=== PATIENT | female | born 1980 | race African-American/Black ===

== ENCOUNTER 2020-11-05 08:29 | Emergency (ER) | payer MEDICAID, OTHER ==
[~2020-11-05] VITALS: Ht 172.7 cm; Wt 88.0 kg
[2020-11-05] MEDS ORDERED: SODIUM CHLORIDE 0.9% 1,000 ML IV ONE (10:00)
[2020-11-05] MEDS ORDERED: METOCLOPRAMIDE HCL 10MG/2ML VIAL IV ONE (10:00)
[2020-11-05] MEDS ORDERED: KETOROLAC 15MG/ML VIAL IV ONE (10:00)
[2020-11-05] MEDS ORDERED: IBUP-2028 MT (12:01)
[2020-11-05 12:10] VITALS: BP 112/78
== END 2020-11-05 12:10 | disposition home or self-care (01) ==
LOC: ER 08:29
DX: R51.9 Headache, unspecified (principal)
CPT/HCPCS: 81025; 96361; 96374; 96375; 99284; J1885; J2765; J7030; Z7610